=== PATIENT | male | born 1950 | race Caucasian/White ===

== ENCOUNTER 2024-08-09 12:27 | Outpatient (AMB) | payer MEDICARE, SELFPAY ==
--- NOTE | 2024-08-09 12:50 | A.SPINEOV_ITS ---
Vital Signs 08/09/24 13:00 Height 6 ft 1 in Weight 260 lb BMI 34.3 Intake Visit Reasons: low back pain radiating to legs Intake Note: Mr. Melendez is here today c/o Low back pain that radiates to both legs. 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 He reports that his bilateral lower extremity pain has been ongoing for many years, and is confounded by his concurrent diagnosis of peripheral neuropathy. His low back pain really became an issue about a year ago after he took a fall in September. He states that over the course of the last few months his pain has worsened significantly. It is now to the point where his pain is affecting his activities of daily living and his ability to ambulate throughout the day. He reports that positional changes exacerbate his pain, such as sitting from a lying position or standing from a seated position. When describing the shooting pains down his bilateral lower extremities he states that the pain starts in his low back shoots over his posterior lateral thighs down the lateral aspect of his knee terminating near the lateral calf. He has attempted physical therapy in the past but did not find it to be helpful. He had cortisone injections completed by our colleagues at [facility] which he states were very painful and provided no relief for him. He has attempted Tylenol, NSAIDs, and lcmh-hce-uwoporh pain gel/creams such as capsaicin in the past. He is now hoping to find a more permanent surgical solution to his pain. PMH: Type 2 diabetes with peripheral neuropathy (last A1c reported as 6.7 in May of 2024). Hypertension, sleep apnea, GERD, history of T11-T12 discectomy completed in 2005, history of bilateral femoral endarterectomy in 2020, history of 2 cardiac stents placed in 2018 (followed by [facility]), cholecystectomy in 2007, unspecified right knee surgery in 2003. Social hx: The patient does not smoke, reports no substance use. Medications: Plavix 75 mg daily, metoprolol, omeprazole, atorvastatin, lisinopril, Lantus, amitriptyline, multivitamin. Allergies: Demerol, adhesive tape. Physical exam: The patient has what I would call about 4/5 strength with bilateral iliopsoas testing, the rest of his strength in the upper and lower extremities is 5/5. He has hypoesthesia from his feet to his mid tibialis where he begins to regain more sense of light touch. His reflexes are 2+ intact. He rises from a seated position with difficulty bracing himself on the chair. (-) bilateral straight leg raise, (-) Sylvester's, (-) clonus. Imaging review: MRI of the lumbar spine completed at [facility] in May of 2024 shows a grade 1 spondylolisthesis at L4-5. There is moderate central canal and moderate-severe bilateral foraminal stenosis at this level. The patient was sent for dynamic lumbar spine X-rays during this visit which show worsening of his spondylolithesis to a grade 2 with upright standing. Impression: Adelso is a pleasant 73-year-old male who comes in today for evaluation of his severe low back pain and bilateral leg pain. His severe low back pain has been ongoing since September of last year after an inciting incident identified as a fall. He reports the pain worsens with positional changes, and is beginning to severely affect his activities of daily living and affect his ability to work. He appears to be suffering from instability and compression at L4-5 causing severe low back pain and radiculopathy that worsens with positional changes. We extensively discussed the potential treatment options for this. One option would be to do a simple lumbar decompression at L4-5, however this would likely increase his risk of instability and the data shows that lumbar decompression at the level of a sponydlolithesis has a higher reoperation rate than spine fusion at the level of a spondylolithesis. Therefore, we also discu ssed the possibility of oblique lumbar interbody fusion at L4-5. I explained to this procedure utilizing the spine models we have in office. I answered any questions that he had pertaining to the surgery. He would like to take some time to think about it and will reach back out to our office if you would like to proceed. Of note, he will need to stop his Plavix 10 days before surgery and obtain cardiac clearance if we are to proceed. I will also need to obtain a documented record of his last A1c. Thank you for allowing us to care for your patient. The total time spent with this visit with this patient was 65 minutes reviewing history, physical exam, MRI imaging review, and implementation of treatment plan or further diagnostic testing Bc Rushing MD,PhD [facility] Orders: Orders XR lumbar spine 4V min Today M43.10 - Spondylolisthesis, site unspecified Coding Level of Care Code New Pt Level 5 (91158) Diagnoses Spondylolisthesis M43.10
[2024-08-09 13:00] VITALS: BMI 34.3
--- OUTSIDE RECORDS SUMMARY | 2024-08-09 14:57 | XMS_ITS ---
Author Organization [facility] [place] Address [address] [place] [address] Care Team Providers Care Weigher Operator Name Role Phone Goyo Quiles MD Primary Care Provider Bhumi Pastrana Unavailable [phone] Allergies Allergen (clinical drug ingredient) Drug/Non Drug Allergy documented on EMR Reaction Allergy Type Onset Date Status meperidine Demerol anaphylaxis Drug Allergy Acti ve Adhesive rash Allergy Active REASON FOR VISIT At Risk Footcare, Heel pain Medications Medication SIG (Take, Route, Frequency, Duration) Notes Start Date End Date Status Norvasc 10 MG 1 tablet Orally Once a day for 30 day(s) Not-Taking Metoprolol Succinate 50 MG 1 capsule Orally Once a day for 30 day(s) Active Atorvastatin Calcium 40 MG 1 tablet Orally Once a day for 30 day(s) Active Omeprazole 40 MG 1 capsule 30 minutes before morning meal Orally Once a day for 30 day(s) Active Lisinopril 30 MG 1 tablet Orally Once a day for 30 day(s) Active CoQ10 Active Lantus SoloStar 100 UNIT/ML as directed Subcutaneous Act kassandra Plavix 75 MG 1 tablet Orally Once a day for 30 day(s) Active Multivitamin Active HumaLOG 100 UNIT/ML as directed Injection Active Flaxseed Oil Active Vitamin D Active B-Complex Active Social History Tobacco Use: Social History Observation Description Date Details (start date - stop date) Former Smoker NA - NA Tobacco Use/Smoking Question Answer Notes Are you a: former smoker Additional Findings: Tobacco Non-User Current no n-smoker Alcohol Screen Question Answer Notes Did you have a drink containing alcohol in the p ast year? Yes Points 0 Interpretation Negative Tobacco use other than smoking: Question Answer Notes Are you an other tobacco user? No Vital Signs Blood pressure systolic 130 mm Hg 11/10/19 24 Blood pressure diastolic 78 mm Hg 024 Height 6ft in 11/10/2023 Weight 255 lbs 11/10/2023 BMI 34.58 kg/m2 11/10/2023 Encounters Encounter Location Date Provider Diagnosis [facility] [address] [place] [address] 11/10/2023 Bhumi Soto Type 2 diabetes mellitus with diabetic polyneuropathy E11.42 ; Plantar fasciitis of left foot M72.2 ; Pain in left foot M79.672 ; Calcaneal spur, left foot M77.32 ; Interstitial myositis of left foot M60.172 and Bursitis of left foot M77.52 Assessments Encounter Date Diagnosis (ICD Code) Assessment Notes Treatment Notes Treatment Clinical Notes Section Notes 11/10/2023 Type 2 diabetes mellitus with diabetic polyneuropathy (ICD-10 - E11.42) 11/10/2023 Plantar fasciitis of left foot (ICD-10 - M72.2) 11/10/2023 Pain in left foot (ICD-10 - M79.672) 11/10/2023 Calcaneal spur, left foot (ICD-10 - M77.32) 11/10/2023 Interstitial myositis of left foot (ICD-10 - M60.172) 11/10/2023 Bursitis of left foot (ICD-10 - M77.52) Plan Of Treatment Next Appt Details Follow Up: prn, Reason: Progress Notes * Adelso MELENDEZDOB:[birth year] (73 yo M)Acc No.[id number]:11/10/2023 Progress Notes Patient:?Adelso MELENDEZ Provider:?Bhumi Soto DPM :1950???Age:73 Y???Sex:Male Scott e:11/10/2023 Address:[address] [place], [place] [id number] Pcp:Goyo Quiles MD Subjective: * Chief Complaints: * ???At Risk FootcareHeel pain * HPI: ???Heel pain:?Location:?Proximal plantar aspect of Heel, LEFT.?Duration:?several months .?Course:?improved at approximately 25%.?Aggravated:?standing, walking, walking first thing in the morning/after rest.?Treatments:?rest/alter normal daily activity change in shoes stretching.? * ROS:?General/Constitutional:?Nausea?denies, denies.?Vomiting?denies, denies.?Hunger Thirst?denies, denies.?Loss appetite?denies, denies.?Chills?denies, denies.?Fatigue?denies, denies.?Fever?denies, denies.?Night Sweats denies, denies.?Unexplained weight loss?denies, denies.?Unexplained weight gain?denies, denies.?HEENTM:?Dentures?denies, denies.?Dizziness?denies, denies.?Glasses/contacts?admits, admits.?Retinopathy?denies, denies.?Blurred/double vision?denies, denies.?TMJ?denies, denies.?Discharge/drainage?denies, denies.?Implants?denies, denies.?Sore throat?denies, denies.?Dental implants?denies, denies.?Hard of hearing ?denies, denies.?Difficulty chewing/swallowing/speaking?denies, denies.?Nose bleeds?denies, denies.?Sore mouth?denies, denies.?Respiratory:?On Oxygen?denies, denies.?Pneumonia/pleurisy?denies, denies.?Bronchitis?denies, denies.?Emphysema?denies, denies.?Coughing?denies, denies.?Cough blood?denies, denies.?Shortness of breath?denies, denies.?Wheezing?denies, denies.?Cardiovascular:?Pacemaker?denies, denies.?MVP?denies, denies.?WPW?denies, denies.?CHF?denies, denies.?Heart attack?denies, denies.?Septal defect?denies, denies.?Rapid beat?denies, denies.?Chest pain ?denies, denies.?Atrial Fib.?denies, denies.?Murmur/Palpitations?admits, admits.?Gastrointestinal:?Hemorrhoids?denies, denies.?Stomach/Abdominal pain?denies, denies.?Dark blood stool?denies, denies.?Irritable bowel ?denies, denies.?Constipation?denies, denies.?Diarrhea?denies, denies.?Hematology:?Swelling?denies, denies.?Clots?denies, denies.?Varicose Veins?denies, denies.?Bruising?denies, denies.?Bleeding problem?denies, denies.?Genitourinary:?Blood urine?denies, denies.?Frequent/Painfu/urination/bladder control?denies, denies.?Kidney stones?admits, admits.?Infection (UTI)?denies, denies.?Nephropathy?admits, denies.?sex trans dis (STD)?denies, denies.?Prostate?denies, denies.?Musculoskeletal:?Hammertoes?denies, denies.?Bunions?denies, denies.?Back Pain?admits, admits.?Muscle Cramps/ Resting?admits, admits.?Muscle cramps / walking?admits, admits.?Generalized aches and pains?admits, admits.?Weakness?denies, denies.?Integ.:?Edwards?denies, denies.?Scars?denies, denies.?Corns/calluses?denies, denies.?Ingrown nails?denies, denies.?Painful nails?denies, denies.?Open Sores?denies, denies.?Rashes?denies, denies.?Neurologic:?Difficulty sleeping?denies, denies.?Brain disorder?denies, denies.?Numbness?admits, admits.?Balance trouble?denies, denies.?Confusion?denies, denies.?Fainting/blackouts?denies, denies.?Tingling?admits, admits.?Tremors?denies, denies.? * Medical History:? * Surgical History:?2 Cardiac Stents 09/2016Bilateral Femerol Endarterectomy 2021 * Hospitalization/Major Diagno stic Procedure:?[facility]- Fall 09/15/23 * Family History:?Mother: zion montero, diagnosed with Family history of arthritis, Diabetic - NIDDM, Unspecified essential hypertension.?Father: , diagnosed with Unspecified heart disease.? * Social History:?Tobacco Use:?Tobacco Use/Smoking?Are you a:?former smoker ?Additional Findings: Tobacco Non-User?Current non-smoker ?Tobacco use other than smoking?Are you an other tobacco user??No ???Drugs/Alcohol:?Drugs?Have you used drugs other than those for medical reasons in the past 12 months??No ?Alcohol Screen?Did you have a drink containing alcohol in the past year??Yes ?Points?0 ?Interpretation?Negative ???Miscellaneous:?Caffeine: yes, Decaf Coffee , 2-3 cups per day. ?Children: yes. ?Exercise: no. ?Marital status: . 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 * Medications:?TakingVitamin D B-Complex Flaxseed Oil CoQ10 Multivitamin HumaLOG 100 UNIT/ML Solution as directed Injection Lantus SoloStar 100 UNIT/ML Solution Pen-injector as directed Subcutaneous Plavix 75 MG Tablet 1 tablet Orally Once a day Lisinopril 30 MG Tablet 1 tablet Orally Once a day Atorvastatin Calcium 40 MG Tablet 1 tablet Orally Once a day Omeprazole 40 MG Capsule Delayed Release 1 capsule 30 minutes before morning meal Orally Once a day Metoprolol Succinate 50 MG Capsule ER 24 Hour Sprinkle 1 capsule Orally Once a day Taking Vitamin D Taking B-Complex Taking Flaxseed Oil Taking CoQ10 Taking Multivitamin Taking HumaLOG 100 UNIT/ML Solution as directed Injection Taking Lantus SoloStar 100 UNIT/ML Solution Pen-injector as directed Subcutaneous Taking Plavix 75 MG Tablet 1 tablet Orally Once a day Taking Lisinopril 30 MG Tablet 1 tablet Orally Once a day Taking Atorvastatin Calcium 40 MG Tablet 1 tablet Orally Once a day Taking Omeprazole 40 MG Capsule Delayed Release 1 capsule 30 minutes before morning meal Orally Once a day Taking Metoprolol Succinate 50 MG Capsule ER 24 Hour Sprinkle 1 capsule Orally Once a day Not- Taking/PRNNorvasc 10 MG Tablet 1 tablet Orally Once a day Medication List reviewed and reconciled with the patientNot-Taking/PRN Norvasc 10 MG Tablet 1 tablet Orally Once a day Medication List reviewed and reconciled with the patient * Allergies:?Demerol: anaphyla xisAdhesive: rashyes[Allergies Verified] Objective: * Vitals:?Ht: 6ft, Wt:255, BMI :34.58, Shoe size: 12, BP:130/78mm Hg, BS: 130, Ht- cm: 182.88 cm, Wt-k.67 kg. * ???Past Orders: ???Lab:HEMOGLOBIN A1C (GLYCO HEMOGLOBIN) (Order Date - 05/10/2023) (Collection Date & Time - 05/10/2023 12:53 PM) ? Value Reference Range ?HEMOGLOBIN A1C (HH) 7.6 * Examination: ???Ophthalmology Referral: ?DIABETES EYE EXAM?Diabetic Retinopathy Screening:?Yes ?Findings of Diabetic Eye Exam:?no retinopathy?Neurological: ?SENSORY:? Neurological exam demonstrates, reduced light touch sensation, reduced sharp/dull pin prick discrimination , B/L, 5.07 monofilament test performed at plantar aspects of 5 varied sites per foot shows sensation, reduced , B/L.?Vascular: ?DP PULSES (B):?3/4, B/L.?PT PULSES (B):?3/4, B/L.?CAPILLARY FILL TIME:?immediate, all digits, B/L.?TROPHIC CONDITION-TEXTURE/ELASTICITY/TURGOR/HAIR GROWTH (B):?normal, B/L.?TEMPERTURE GRADIENT (C):?normal, warm to cool, proximal to distal, B/L, B/L.?Orthopedic: ?MUSCLE STRENGTH:?5/5 all groups in a symmetrical fashion, B/L.?GAIT ABNORMALITY:?antalgic.?FOOT MORPHOLOGY:? Pes Planus structure, Decreased Ankle joint dorsiflexion ROM, knee extended.?FOOTWEAR:?fair condition.?General Examination: ?GENERAL APPEARANCE:?Reveals a pleasant, alert, well nourished, well- developed, well hydrated individual, who demonstrates proper attention to hygiene/body habitus, and is in no acute distress, Pt serves as own historian for office visit today.?ORIENTED:?person, place, and time.?FOOT EXAM:?Lower Extremity Neurological Exam performed:?Yes ?Visual exam of foot performed:?Yes ?Date?11/10/2023 ?Footwear Evaluation?Footwear Evaluation performed:?Yes?Heel Pain: ?INSPECTION:? Pain on Palpation to Plantar Fascia med. and central bands, intrinsic musc., infra-calcaneal bursa, and med calc tubercle , LEFT foot, No pain: posterior/superior heel, achilles bursa/tendon, sinus tarsi, peroneals, or with lateral heel compression; no limited STJ ROM, calor, or ecchymosis.? 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 Plan: * Treatment: * Procedure Codes:? * Preventive Medicine:? ??Counseling:?Discussion:?-13: Office or other outpatient visit for the evaluation and management of an established patient, which required a medically appropriate history and/or examination and LOW level of DECISION MAKING for: 1 STABLE ACUTE UNCOMPLICATED PROBLEM, 2 OR MORE MINOR PROBLEMS, OR 1 STABLE CHRONIC PROBLEM, THAT POSE(S) A LOW RISK FOR MORBIDITY/MORTALITY. The visit on the day of the encounter encompassed interpreting the data and educating the patient as to the nature of their condition, treatment options available according to their individual PMH, meds, allergies, and overall health/living conditions, as well as any potential risks or complications that may occur from a failure to adhere to, and participate in, the recommended course of therapy. The discussion included a complete verbal, and/or written explanation of the examination results, any x-rays taken, the proposed diagnosis, and outline of the treatment plan. A schedule for future care needs was also explained. The patient verbalized an understanding of the instructions at this time and agreed to be an active participant in their treatment. If the patient should think of any questions or concerns after the visit, I have encouraged the patient to call the office.?Heel pain:?Discussed other tx options for the patients condition, Given recent successful results to treatment, the patient wishes to continue with the present plan for their condition.?Orthotics:?I explained to the patient the benefits of OT use. I explained that orthoses are medically necessary to decrease the foot pain through proper mechanical control, support of their foot, The patient was asked to seriously consider this important treatment option.?Steriod Injection:?Pt defers injection today.? ??Screening/Special Tests:?Fall Risk?Assessment:?Performed ?Screening:?No falls in the past year ?FALLS: Screening for Future Fall Risk?Have you had two or more falls in the past year??No ?Have you had any falls with injury in the past year??No * Follow Up:?prn * Images: * Sign off status: Completed true * Provider:?Bhumi Soto DPM Date:?07/2023 Generated for Robe bowers/Faith/Arshitting on:?08/09/2024 02:57 PM EDT History and Physical Notes * HPI (History of Present Illness) Category Sub-Category Detail Notes Category Not es Heel pain Duration: several months Location: Proximal plantar asp ect of Heel, LEFT Aggravated: standing, walking, w alking first thing in the morning/after rest Course: improved at approxim ately 25% Treatments: rest/alter normal da joyce activity change in shoes stretching Examination Category Sub-Category Detail Notes Category Not es Neurological SENSORY: Neurological exa m demonstrates, reduced light touch sensation, reduced sharp/dull pin prick discrimination , B/L, 5.07 monofilament test performed at plantar aspects of 5 varied sites per foot shows sensation, reduced , B/L Orthopedic GAIT ABNORMALITY: antalgic FOOT MORPHOLOGY: Pes Planus structure , Decreased Ankle joint dorsiflexion ROM, knee extended FOOTWEAR EVALUATION: fair condition MUSCLE STRENGTH: 5/5 all groups in a symmetrical fashion, B/L General Examination GENERAL APPEARANCE: Reveals a pleasant, alert, well nourished, well-developed, well hydrated individual, who demonstrates proper attention to hygiene/body habitus, and is in no acute distress, Pt serves as own historian for office visit today FOOT EXAM: Lower Extremity Neurological Exa m performed:: Yes Visual exam of foot performed:: Yes Date: 11/10/2023 ORIENTED: person, place, and t jcarlos Footwear Evaluation Footwear Evaluation performe d:: Yes Ophthalmology Referral DIABETES EYE EXAM Diabetic Retinopa thy Screening:: Yes Findings of Diabetic Eye Exam:: no retin opathy Vascular DP PULSES (B): 3/4, B/L PT PULSES (B): 3/4, B/L CAPILLARY FILL TIME: immediate, all digi ts, B/L TEMPERTURE GRADIENT (C): normal, warm to cool, proximal to distal, B/L, B/L TROPHIC CONDITION-TEXTURE/ELASTICITY/TURGOR/HAIR GROWTH (B): normal, B/L Heel Pain INSPECTION: Pain on Palpatio n to Plantar Fascia med. and central bands, intrinsic musc., infra-calcaneal bursa, and med calc tubercle , LEFT foot, No pain: posterior/superior heel, achilles bursa/tendon, sinus tarsi, peroneals, or with lateral heel compression; no limited STJ ROM, calor, or ecchymosis
--- OUTSIDE RECORDS SUMMARY | 2024-08-09 14:57 | XMS_ITS ---
Author Organization [facility] Address [address] [place] [address] Care Team Providers Care Horticulture Instructor Name Role Phone Etta MURCIA, Goyo Primary Care Provider Unavailab Bhumi Hough Unavailable [phone] REASON FOR VISIT Seen Sooner Encounters Encounter Location Date Provider Diagnosis [facility] [address] [place] [address] 09/29/2023 Bhumi Soto Plan Of Treatment No Information Progress Notes * Adelso MELENDEZDOB:[birth year] (73 yo M)Acc No.[id number]:09/29/2023 Progress Notes Patient:?Adelso MELENDEZ Provider:?Bhumi Soto DPM :1950???Age:73 Y???Sex:Male Scott e:09/29/2023 Address: [address] [id number] Pcp:Goyo Quiles MD Subjective: * Chief Complaints: * ???1. Seen Sooner. * Medical History:? Objective: * Vitals:? Assessment: Plan: * Treatment: * Images: * The named appointment provid er may or may not be the originator of this progress note, and it is not deemed complete until electronically signed by the appointment provider. Sign off status: Pending * Provider:?Bhumi Soto DPM Date:? Generated for Robe bowers/Faith/Arshitting on:?08/09/2024 02:57 PM EDT
--- OUTSIDE RECORDS SUMMARY | 2024-08-09 14:57 | XMS_ITS | Patient Health Record ---
Author Organization [facility] Address [address] [place] [address] Care Team Providers Care Field Test Engineer Name Role Phone Goyo Quiles MD Primary Care Provider Bhumi Pastrana Unavailable [phone] Allergies Allergen (clinical drug ingredient) Drug/Non Drug Allergy documented on EMR Reaction Allergy Type Onset Date Status meperidine Demerol anaphylaxis Drug Allergy Acti ve Adhesive rash Allergy Active Reason For Referral No Information Medications Medication SIG (Take, Route, Frequency, Duration) Notes Start Date End Date Status Flaxseed Oil Active CoQ10 Active Vitamin D Active Norvasc 10 MG 1 tablet Orally Once a day for 30 day(s) Not-Taking B-Complex Active Metoprolol Succinate 50 MG 1 capsule Orally Once a day for 30 day(s) Active Atorvastatin Calcium 40 MG 1 tablet Orally Once a day for 30 day(s) Active Omeprazole 40 MG 1 capsule 30 minutes before morning meal Orally Once a day for 30 day(s) Active Lisinopril 30 MG 1 tablet Orally Once a day for 30 day(s) Active Lantus SoloStar 100 UNIT/ML as directed Subcutaneous Act kassandra Plavix 75 MG 1 tablet Orally Once a day for 30 day(s) Active Multivitamin Active HumaLOG 100 UNIT/ML as directed Injection Active Immunizations Vaccine Route Administration Date Status Comme nts Influenza Unknown 09/22/2023 Others Social History Tobacco Use: Social History Observation [...] Are you an other tobacco user? No Problems Problem Type SNOMED Code ICD Code Onset Dates Problem Status W/U Status Risk Notes Problem Polyneuropathy due to type 2 diabetes mellitus (998329457) Type 2 diabetes mellitus with diabetic polyneuropathy (E11.42) Active confirmed Problem Interstitial myositis (38781720) Interstitial myositis of left foot (M60.172) Active confirmed Vital Signs Blood pressure diastolic 78 mm Hg 11/10/2023 Height 6ft in 11/10/2023 Blood pressure systolic 130 mm Hg 11/10/2023 Weight 255 lbs 11/10/2023 BMI 34.58 kg/m2 11/10/2023 Encounters Encounter Location Date Provider Diagnosis [address] [address] 09/22/2023 Bhumi Soto Type 2 diabetes mellitus with diabetic polyneuropathy E11.42 ; Plantar fasciitis of left foot M72.2 ; Pain in left foot M79.672 ; Calcaneal spur, left foot M77.32 ; Interstitial myositis of left foot M60.172 and Bursitis of left foot M77.[address] [address] 11/10/2023 Bhumi Soto Type 2 diabetes mellitus with diabetic polyneuropathy E11.42 ; Plantar fasciitis of left foot M72.2 ; Pain in left foot M79.672 ; Calcaneal spur, left foot M77.32 ; Interstitial myositis of left foot M60.172 and Bursitis of left foot M77.[address] [address] 08/03/2024 Bhumi Soto Assessments Encounter Date Diagnosis (ICD Code) Assessment Notes Treatment Notes Treatment Clinical Notes Section Notes 11/10/2023 Type 2 diabetes mellitus with diabetic polyneuropathy (ICD-10 - E11.42) 09/22/2023 Type 2 diabetes mellitus with diabetic polyneuropathy (ICD-10 - E11.42) 09/22/2023 Plantar fasciitis of left foot (ICD-10 - M72.2) Patient Educated with: HEEL CORD STRETCHES.pdf (HEEL CORD STRETCHES.pdf ) Patient Educated with: RICE THERAPY.pdf (RICE THERAPY.pdf) 09/22/2023 Pain in left foot (ICD-10 - M79.672) 11/10/2023 Pain in left foot (ICD-10 - M79.672) 11/10/2023 Plantar fasciitis of left foot (ICD-10 - M72.2) 11/10/2023 Calcaneal spur, left foot (ICD-10 - M77.32) 09/22/2023 Calcaneal spur, left foot (ICD-10 - M77.32) 11/10/2023 Interstitial myositis of left foot (ICD-10 - M60.172) 09/22/2023 Interstitial myositis of left foot (ICD-10 - M60.172) 09/22/2023 Bursitis of left foot (ICD-10 - M77.52) 11/10/2023 Bursitis of left foot (ICD-10 - M77.52) Plan Of Treatment Pending Test Test Name Order Date X ray : Foot, left 3V 09/22/2023 Insurance Providers Payer Name Payer Address Payer Phone Subscriber Number Group Number Insured Name Patient Relationship to Insured Coverage Start Date Coverage End Date [employer] [address] [place] [address] [phone] [id number] Adelso Melendez Self - patient is the insured Medical (General) History Medical History History ICD Code Back,Hip,and Knee pain covid-19 Diabetic Diverticulosis Gall bladder problems Heart disease High blood pressure Numbness Poor circulation Reflux ( GERD) Sciatica Measles Mumps Chicken pox Surgical History Surgery Date(Month/Year) 2 Cardiac Stents 09/2016 Bilateral Femerol Endarterectomy 2021 Hospitalization History Reason Date(Month/Year) [facility]- Fall 09/15/23
--- OUTSIDE RECORDS SUMMARY | 2024-08-09 14:58 | XMS_ITS ---
Author Organization [facility] Address [address] [place] [address] Care Team Providers Care Transmitter Chief Name Role Phone Goyo Quiles MD Primary Care Provider Unavailab Bhumi Hough Unavailable [phone] REASON FOR VISIT Medical records request Encounters Encounter Location Date Provider Diagnosis [facility] [address] [place] [address] 08/03/2024 Bhumi Soto Plan Of Treatment No Information Progress Notes * Adelso MELEN[birth year]DOB:[birth year] (73 yo M)Acc No.[id number]:08/03/2024 Patient:?Adelso MELENDEZ :1950???Age:73 Y???Sex:Male Address: [place] [address] * * Date:?
== END 2024-08-09 13:56 | disposition home or self-care (01) ==
LOC: HO.HNS 12:27
PROVIDERS: PCP Internal Medicine; Visit Provider Physician Assistant
DX: M43.10 Spondylolisthesis, site unspecified (principal)
CPT/HCPCS: 99205

== ENCOUNTER 2024-08-09 12:27 | Outpatient (REF) | payer MEDICARE, SELFPAY ==
--- NOTE | ~2024-08-09 | XR_ITS ---
CLINICAL HISTORY: M43.10 - Spondylolisthesis, site unspecified 4 views lumbar spine Comparison: None Findings: Mild scoliotic curvature. No acute fractures or dislocation. There is multiple level degenerative disc and facet change. There is aortoiliac calcification IMPRESSION: No acute findings. This document has been electronically signed by: Niranjan Hardin MD on 08/11/2024 08:25:02
== END 2024-08-09 12:28 | disposition home or self-care (01) ==
LOC: HO.HOSX 12:27
PROVIDERS: PCP Internal Medicine; Visit Provider Physician Assistant
DX: M43.10 Spondylolisthesis, site unspecified (principal)
CPT/HCPCS: 72110; 99202

== ENCOUNTER → 2024-08-09 13:33 | Outpatient (BNV) | payer MEDICARE, SELFPAY | PROVIDERS: PCP Internal Medicine; Visit Provider Specialist | DX: M43.10 Spondylolisthesis, site unspecified (principal) | CPT/HCPCS: 72110 ==